=== PATIENT | male | born 1960 | race Caucasian/White ===

== ENCOUNTER → 2024-02-11 06:20 | Day surgery (SDC) | payer OTHER, SELFPAY | LOC: GI 06:20 | PROVIDERS: ATTENDING PHYSICIAN Internal Medicine Gastroenterology | DX: Z12.11 Encounter for screening for malignant neoplasm of colon (principal); Z86.010 Personal history of colon polyps; K64.8 Other hemorrhoids; K57.30 Diverticulosis of large intestine without perforation or abscess without bleeding; D12.0 Benign neoplasm of cecum; D12.3 Benign neoplasm of transverse colon; D12.4 Benign neoplasm of descending colon | CPT/HCPCS: 45385; 45380; 88305 ==

== ENCOUNTER 2024-10-17 13:59 | Inpatient (IN) | payer OTHER, SELFPAY ==
[2024-10-17 10:52] VITALS: BP 132/94
--- NOTE | 2024-10-17 10:52 | ED.GENMED ---
ED Provider Triage
<Rodríguez Buckner PA-C - Last Filed: 10/18/24 07:08>
-
Patient seen by provider in Triage?: Seen in Triage
64 yo male presents due to rapid AF noted on routine EKG at PCP office. No symptoms. No prior hx. Does not have a events solutions consultant. Denies CP SOB, N/V/D or dizziness.
Tachycardic, regular. EKG reviewed from PCP looks like a flutter. Clinically stable.
Check labs including TSH; repeat EKG. Not a cardioversion candidate.
History of Present Illness
<Rodríguez Buckner PA-C - Last Filed: 10/18/24 07:08>
General
Chief Complaint: Heart Rate Problem
Time Seen by Provider: 10/17/24 11:11
<Yareli Key MD - Last Filed: 10/17/24 13:28>
General
Source: patient
History of Present Illness
History of Present Illness:
This patient is a 64-year-old male presents emergency department from his primary care doctor's office. He saw his doctor today for a biannual check, states 'I feel fine', who was noted to be tachycardic, ECG consistent with a flutter. Patient
states that he had no symptoms until he was alerted of this and then he started to notice that his heart rate was elevated. He denies dizziness, dyspnea, back pain, neck pain, headache, abdominal pain, nausea, vomiting, fever, chills. When asked
about chest pain he says he occasionally has 'discomfort' lasting 30 seconds or less, coming and going without specific provoking or relieving factors' for the last 2 days. No associated diaphoresis. Patient denies leg swelling, history of
clotting disorder in him or family members, recent immobilization, recent trauma, recent surgery, smoking history, or other PE risk factors.
Past History
<Rodríguez Buckner PA-C - Last Filed: 10/18/24 07:08>
Past History
ED Past Medical History: None
Social History
Tobacco: Non-smoker
Personal:
Living: with family
Employment: Employed
<Yareli Key MD - Last Filed: 10/17/24 13:28>
Past History
ED Past Medical History: HTN
ED Past Surgical History: Orthopedic
Social History
Alcohol: Occasional
Drug: None
Phy Exam
<Yareli Key MD - Last Filed: 10/17/24 13:28>
Physical Exam
Physical Exam:
GENERAL: Alert , in no apparent distress
EYE: pupils equal and reactive
NECK: Supple, no significant adenopathy.
ENT: o/p clr, mmm.
CARDIAC: Regular rate and rhythm, tachycardic.
LUNGS: Clear breath sounds bilaterally, no acute respiratory distress, no wheezes/rales/rhonchi
ABDOMEN: Soft, without focal tenderness, no r/g, no cvat
NEUROLOGICAL: Alert and oriented, no focal neuro deficits
SKIN: Warm and dry, skin intact.
MUSCULOSKELETAL: No edema, well perfused.
PSYCH: Normal and appropriate interaction.
Course
<Rodríguez Buckner PA-C - Last Filed: 10/18/24 07:08>
Orders/Labs/Results
Orders:
Orders
10/17/24 10:54
Electrocardiogram (*1) Urgent
Reason for Study: Tachycardia
EKG- Treatment ONCE
10/17/24 11:26
Complete Blood Count/No Diff Urgent
Comprehensive Metabolic Panel Urgent
D-Dimer Urgent
TSH Reflex To Free T4 Urgent
Troponin I Urgent
10/17/24 13:23
Diltiazem 125 mg/125 ml Nss [Cardizem] 125 mg in 125 ml IV NOW
Initial dose in mg/hr, then titrate:: 5
Titrate to keep:: Heart rate 80-100 bpm
Titrate by mg/hr:: 5 mg/hr
Frequency of titrations (minutes):: 15
Maximum dose in mg/hr:: 15
Diltiazem HCl [Cardizem] 20 mg IV NOW STA
10/17/24 13:24
CARDIOLOGY CONSULT Urgent
Consulting Provider: Buster Bosch
Was physician already notified: Yes
10/17/24 13:38
Admit/Transfer Patient As Directed
Co-Sign Provider:
Level of Care: Inpatient admission
Assign to:: IVU
Physician / Group: shayla reed
Diagnosis: atrial flutter
Reason for Hospitalization: atrial flutter
Expected length of stay greater than two midnights?: Yes
ELOS- Estimated Length of Stay in days: 3
I certify the patient meets the requirements for IP care: Yes
Code Status As Directed
Resuscitation Status: Full Code
PRN Pain Medication Management As Directed
May give lesser potent ordered pain med per pt: Yes
preference::
Protocol:: Medication orders for pain may be administered in a
manner that supports deferring to patient preference
when the pt is:
- Requesting an ordered lesser potent pain medication.
Least to most potent pain medications are defined
as: acetaminophen < NSAID < tramadol < opioids
(morphine, oxycodone, hydromorphone).
- Requesting a lesser dose of the same medication IF
ORDERED.
- Requesting a less intrusive route of administration
if both routes are prescribed by the provider (PO <
IV).
10/17/24 15:11
Acetaminophen [Tylenol] 650 mg PO Q4HPRN PRN
Bisacodyl [Dulcolax] 10 mg RECTAL [id number] PRN
Diltiazem 125 mg/125 ml Nss [Cardizem] 125 mg in 125 ml IV PER PROTOCOL
Currently infusing. Continue current dose and titrate:: Yes
Titrate to keep:: Heart rate 80-100 bpm
Titrate by mg/hr:: 5 mg/hr
Frequency of titrations (minutes):: 15
Maximum dose in mg/hr:: 15
Docusate W/Senna [Senokot-S] 1 tablet PO BIDPRN PRN
Polyethylene Glycol Powder [Miralax] 17 grams PO DAILYPRN PRN
10/17/24 15:11
Activity As Directed
Activity Level: As Tolerated
Vital Signs As Directed
Frequency: Per unit guidelines
DX Deep Vein Thrombosis Video Routine
10/17/24 18:00
Enoxaparin Sodium [Lovenox] 40 mg SC QPM
10/18/24 08:00
Losartan [Cozaar] 100 mg PO DAILY
Abnormal Lab Results
10/17/24
11:26
RDW 14.6 H %
(11.5-14.5)
MPV 10.7 H fL
(7.4-10.4)
BUN 27 H mg/dl
(9-20)
Glucose 101 H mg/dl
(70-99)
10/17/24 11:26
10/17/24 11:26
Vital Signs
Initial and Last Documented VS:
Initial Vital Signs
Pulse Resp BP Pulse Ox
137 18 132/94 97
10/17/24 10:52 10/17/24 10:52 10/17/24 10:52 10/17/24 10:52
Last Documented Vital Signs
Temp Pulse Resp BP Pulse Ox
98.2 F 106 20 114/86 96
10/17/24 10:54 10/17/24 13:45 10/17/24 13:45 10/17/24 13:41 10/17/24 13:45
<Yareli Key MD - Last Filed: 10/17/24 13:28>
Orders/Labs/Results
Orders:
Orders
10/17/24 10:54
Electrocardiogram (*1) Urgent
Reason for Study: Tachycardia
EKG- Treatment ONCE
10/17/24 11:26
Complete Blood Count/No Diff Urgent
Comprehensive Metabolic Panel Urgent
D-Dimer Urgent
TSH Reflex To Free T4 Urgent
Troponin I Urgent
10/17/24 13:23
Diltiazem 125 mg/125 ml Nss [Cardizem] 125 mg in 125 ml IV NOW
Initial dose in mg/hr, then titrate:: 5
Titrate to keep:: Heart rate 80-100 bpm
Titrate by mg/hr:: 5 mg/hr
Frequency of titrations (minutes):: 15
Maximum dose in mg/hr:: 15
Diltiazem HCl [Cardizem] 20 mg IV NOW STA
10/17/24 13:24
CARDIOLOGY CONSULT Urgent
Consulting Provider: Buster Bosch
Was physician already notified: Yes
10/17/24 13:38
Admit/Transfer Patient As Directed
Co-Sign Provider:
Level of Care: Inpatient admission
Assign to:: IVU
Physician / Group: shayla reed
Diagnosis: atrial flutter
Reason for Hospitalization: atrial flutter
Expected length of stay greater than two midnights?: Yes
ELOS- Estimated Length of Stay in days: 3
I certify the patient meets the requirements for IP care: Yes
Code Status As Directed
Resuscitation Status: Full Code
PRN Pain Medication Management As Directed
May give lesser potent ordered pain med per pt: Yes
preference::
Protocol:: Medication orders for pain may be administered in a
manner that supports deferring to patient preference
when the pt is:
- Requesting an ordered lesser potent pain medication.
Least to most potent pain medications are defined
as: acetaminophen < NSAID < tramadol < opioids
(morphine, oxycodone, hydromorphone).
- Requesting a lesser dose of the same medication IF
ORDERED.
- Requesting a less intrusive route of administration
if both routes are prescribed by the provider (PO <
IV).
10/17/24 15:11
Acetaminophen [Tylenol] 650 mg PO Q4HPRN PRN
Bisacodyl [Dulcolax] 10 mg RECTAL [id number] PRN
Diltiazem 125 mg/125 ml Nss [Cardizem] 125 mg in 125 ml IV PER PROTOCOL
Currently infusing. Continue current dose and titrate:: Yes
Titrate to keep:: Heart rate 80-100 bpm
Titrate by mg/hr:: 5 mg/hr
Frequency of titrations (minutes):: 15
Maximum dose in mg/hr:: 15
Docusate W/Senna [Senokot-S] 1 tablet PO BIDPRN PRN
Polyethylene Glycol Powder [Miralax] 17 grams PO DAILYPRN PRN
10/17/24 15:11
Activity As Directed
Activity Level: As Tolerated
Vital Signs As Directed
Frequency: Per unit guidelines
DX Deep Vein Thrombosis Video Routine
10/17/24 18:00
Enoxaparin Sodium [Lovenox] 40 mg SC QPM
10/18/24 08:00
Losartan [Cozaar] 100 mg PO DAILY
Abnormal Lab Results
10/17/24
11:26
RDW 14.6 H %
(11.5-14.5)
MPV 10.7 H fL
(7.4-10.4)
BUN 27 H mg/dl
(9-20)
Glucose 101 H mg/dl
(70-99)
10/17/24 11:26
10/17/24 11:26
Vital Signs
Initial and Last Documented VS:
Initial Vital Signs
Pulse Resp BP Pulse Ox
137 18 132/94 97
10/17/24 10:52 10/17/24 10:52 10/17/24 10:52 10/17/24 10:52
Last Documented Vital Signs
Temp Pulse Resp BP Pulse Ox
98.2 F 106 20 114/86 96
10/17/24 10:54 10/17/24 13:45 10/17/24 13:45 10/17/24 13:41 10/17/24 13:45
<Rodríguez Buckner PA-C - Last Filed: 10/18/24 07:08>
*Critical Care Note
Total Time (30-74mins, 75-104mins- exclusive of procedures): Not Applicable
<Yareli Key MD - Last Filed: 10/17/24 13:28>
Update Note
Update Note:
Patient presents to the Emergency Department with __tachycardia
Number and Complexity of Problems Addressed at the Encounter
� Chronic conditions affecting care:
� Acute Exacerbation and/or Progression of Chronic Illness:
� Differential Diagnosis includes: But not limited to SVT, A-fib, a flutter, sinus tach, PE, hyperthyroidism, etc. etc.
Amount and/or Complexity of Data to be Reviewed and Analyzed
� I performed an independent evaluation of and my interpretation is:
EKG: A flutter, tachycardia, no acute ischemia
CT:
Xrays:
Laboratory Studies: Generally unremarkable
Other:
� Review of other/old records reveals:
� Clinical information was obtained by an independent historian: Ex- who is at bedside, reports patient 5 cups of coffee per day.
� Prescriptions/Medications Considered but not given:
� Further testing considered but not performed:
Risk of Complications and/or Morbidity or Mortality of Patient Management
� Social determinants of health affecting care:
� Discussion with other providers (PCP, Hospitalists, Consultants, etc):
� Escalation of care including admission/observation vs risk of discharge considered: 1:20 PM Case discussed with cardiology, Dr. Cid, recommends Cardizem drip and admission to hospitalist. Case discussed with hospitalist via
[place] text. Cardizem bolus and drip started, patient and family updated questions answered. Patient is asymptomatic at this
ED Attending Note
<Rodríguez Buckner PA-C - Last Filed: 10/18/24 07:08>
-
Portions of this chart may have been created with voice recognition software.� Occasional wrong word or��sound alike� substitutions may have occurred due to the inherent limitations of voice recognition software.
Discharge Plan
Departure
Patient Disposition: Admit
Date of Disposition: 10/17/24
Time of Disposition: 13:25
Admit to: Telemetry
Presentation/result/management discussed w/ accepting MD/DO: Hospitalist
Discharge Problem:
Atrial flutter
Interventions
Interventions:
*Risk Screen - Suicide Last Done: 10/17/24 12:06
*General Assessment Last Done: 10/17/24 12:06
*Neglect/Abuse Screening Last Done: 10/17/24 12:06
ED- Fall Risk Assessment Last Done: 10/17/24 12:06
*ED COVID-19 Vaccine History Last Done: 10/17/24 12:06
*Nursing Disposition Last Done: 10/17/24 15:18
ED- Cardiac Assessment Last Done: 10/17/24 12:06
ED- Pulmonary Assessment Last Done: 10/17/24 12:06
Discharge Date and Time
Discharge Date/Time: 10/17/24 15:18
[2024-10-17 11:08] VITALS: BP 128/97
[2024-10-17 11:43] LABS: Hematocrit 44.7 % (39.0-52.0); Hemoglobin 15.1 g/dL (13.0-18.0); Mean Corp Hgb Conc. 33.8 g/dL (33.0-37.0); Mean Corpuscular Hgb 30.4 pg (27.0-31.0); Mean Corpuscular Volume 89.9 fL (80.0-94.0); Mean Platelet Volume 10.7 fL (7.4-10.4); Platelet Count 202 10^3/uL (130-400); Red Blood Cell Count 4.97 10^6/uL (4.70-6.10); Red Cell Dist. Width 14.6 % (11.5-14.5); White Blood Cell Count 7.1 10^3/uL (4.8-10.8)
[2024-10-17 11:54] LABS: D-Dimer 0.32 ug/mlFEU (0.00-0.50)
[2024-10-17 12:00] LABS: ALT (SGPT) 27 U/L (0-50); AST (SGOT) 26 U/L (17-59); Albumin 4.3 g/dl (3.5-5.0); Alkaline Phosphatase 74 U/L (38-126); Blood Urea Nitrogen 27 mg/dl (9-20); Calcium 9.5 mg/dl (8.4-10.2); Carbon Dioxide 26 mmol/L (22-30); Chloride 102 mmol/L (98-107); Glucose 101 mg/dl (70-99); Potassium 4.6 mmol/L (3.5-5.1); Sodium 137 mmol/L (135-145); Total Bilirubin 0.7 mg/dl (0.2-1.3); Total Protein 6.7 g/dl (6.3-8.2); eGFR > 60.00
[2024-10-17 12:11] LABS: Troponin I < 0.012 ng/ml
[2024-10-17 12:59] LABS: TSH Reflex To Free T4 2.14 uIU/ml (0.47-4.68)
[2024-10-17 13:06] VITALS: BP 135/98
--- NOTE | 2024-10-17 13:24 | CON.CAR ---
Addendum entered and electronically signed by NAE Auguste 10/17/24 16:20:
Correction to below consult year should be 2024
Addendum entered and electronically signed by Buster Bosch MD 10/17/24 15:32:
Patient seen and examined in collaboration with [employer]; agree with below
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
-The patient appears to be primarily asymptomatic; unknown duration of atrial flutter.
-Will try to arrange GI/cardioversion today; if procedure goes well without any complications, the patient can likely be discharged to home today with outpatient Cardiology follow-up.
-Will start Eliquis 5 mg twice daily; first dose now.
-Currently on a Cardizem drip; will change agent to an oral rate-controlling medication after cardioversion.
-Case discussed with primary Hospitalist who has been updated on the plan of care.
Original Note:
Consultation
Consultation Request
Date/Time Consultation Requested: 10/17/2023 13:20
Date/Time Consultation Performed: 10/17/2023 13:30
Requesting Provider: Dr. Yareli Key
Performing Provider: NAE Hardin for Dr. Bosch
Reason for Consultation: Atrial flutter
Medical History
-
Chief Complaint: Elevated heart rate
History of Present Illness:
Josué Gallego is a 64 year old male with HTN and HLD who presented from his PCP office with elevated heart rate. He was found to be in atrial flutter, 2:1. He was given a diltiazem bolus and started on a drip. Cardiology has been consulted for
rhythm management. He denies palpitations. The onset of his atrial flutter is unknown. He does endorse fatigue. This has been ongoing for at least 2 weeks. He had a cardiac catheterization in 2007 which did not demonstrate obstructive coronary
artery disease. At the time of this consultation he denies chest pain, shortness of breath, and dizziness.
Past Medical History
Past Medical History: HTN and Hypercholesterolemia
Past Surgical History: Urological
Social History
Tobacco: Non-Smoker
Alcohol: Occasional
Drug: None
Personal:
Living: With Family
Employment: Employed (medical officer psychiatry)
Family History
Family History: Reviewed & Not Pertinent
Allergies / Home Medications
Allergy/AdvReac Type Severity Reaction Status Date / Time
No Known Allergies Allergy Verified 06/28/14 11:30
�Medication �Instructions �Recorded �Confirmed �Type
losartan 100 mg tablet 100 mg PO DAILY 10/17/24 10/17/24 History
Review of Systems
-
History Source: Patient
All other systems: Negative unless noted
Constitutional: Fatigue
EENT: No Symptoms
Respiratory: No Symptoms
Cardiac: No Symptoms
Abdomen/GI: No Symptoms
: No Symptoms
Musculoskeletal: No Symptoms
Skin: No Symptoms
Neurological: No Symptoms
Endocrine: No Symptoms
Hematologic/Lymphatic: No Symptoms
Physical Exam
Vital Signs
Temp Pulse Resp BP Pulse Ox
98.2 F 135 15 128/97 95
10/17/24 10:54 10/17/24 13:00 10/17/24 13:00 10/17/24 11:08 10/17/24 13:00
Lab Results
10/17/24 11:26
10/17/24 11:26
Troponin I < 0.012 ng/ml 10/17/24 11:26
Physical Exam
General: Well Developed, Well Nourished, No Apparent Distress and Comfortable
HEENT: Normocephalic, Anicteric and Moist Mucous Membranes
Respiratory: Clear and Non Labored Respirations
Cardiac: S1/S2 and Regular Rhythm; Negative Peripheral Edema
Breast: Deferred by me
GI: Soft, Non Tender, Non Distended and Normal Bowel Sounds
Rectal: Deferred by Provider
Genito-urinary: No Costovertebral Tender
Musculoskeletal: No Clubbing, No Cyanosis and No Edema
Skin: Warm and Dry
Hematologic/Lymphatic: No Lymphadenopathy
Psych: Calm
Impression / Plan
-
Atrial flutter, 2:1
-Rate 130s, diltiazem bolus and gtt
-Oral Anticoagulation: Eliquis 5mg BID after LVEF is assessed
-[id number]: score at least 2 (HTN, age 65-74)
-Echocardiogram
-GI/DCCV, timing to be determined pending echocardiogram findings
HTN
-Hold Losartan to allow for rate controlling agents
HLD, 09/2023: TC 189, HLD 48, LDL 118, TG 121
Prediabetes
Suspected ZURDO, sleep study as an outpatient
Obesity, he would benefit from weight loss
Data Reviewed
-
EKG: Report Reviewed by me
Medical Tests (Nuc Med, Echo etc): Report Reviewed by me (Cardiac catheterization as above)
Labs: Labs Reviewed by me
Old Records: Reviewed
--- NOTE | 2024-10-17 13:28 | HPS.HSE ---
Addendum entered and electronically signed by Param Gipson MD 10/17/24 15:23:
see update note for addendum
Original Note:
Family Physician
-
Family Physician: Denise Chaves
Chief Complaint
-
a flutter
History of Present Illness
64-year-old male with PMH for HTN presents emergency department from his primary care doctor's office. He saw his doctor today for a biannual check who was noted to be tachycardic, ECG consistent with a flutter. patient complained of mid sternum
sore for past few days. he notices the sore only to touch. denied sob.denies dizziness, dyspnea, back pain, neck pain, headache, abdominal pain, nausea, vomiting, fever, chills.
upon arrival noted in atrial fib. starting Cardizem drip.admitting for further management.
Medical History
Past Medical History
Past Medical History: Reports Other
Additional Past Medical History:
Hypertension
Hyperlipidemia
Rectal polyp
Diverticulosis
Past Surgical History: Reports Other
Additional Past Surgical History:
Vasectomy
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
[place] teeth extraction
Social History
Tobacco: Non-smoker
Alcohol: Occasional
Drug: None
Personal:
Living: With Family
Family History
Family History: Not pertinent
Allergies / Home Medications
Allergies reflects when Allergies were last updated in [facility].
Home Medications with original date entered in [facility]
Allergy/Medication List:
Allergies
Allergy/AdvReac Type Severity Reaction Status Date / Time
No Known Allergies Allergy Verified 06/28/14 11:30
Home Medications
losartan 100 mg tablet 100 mg PO DAILY 10/17/24
Review of Systems
-
Constitutional: Reports No Symptoms
EENT: Reports No Symptoms
Respiratory: Reports No Symptoms
Cardiac: Reports Chest Pain
Abdomen/GI: Reports No Symptoms
: Reports No Symptoms
Musculoskeletal: Reports No Symptoms
Skin: Reports No Symptoms
Neurological: Reports No Symptoms
Endocrine: Reports No Symptoms
Hematologic/Lymphatic: Reports No Symptoms
Psych: Reports No Symptoms
Physical Exam
Vital Signs
Vital Signs
Temp Pulse Resp BP Pulse Ox
98.2 F 135 15 128/97 95
10/17/24 10:54 10/17/24 13:00 10/17/24 13:00 10/17/24 11:08 10/17/24 13:00
Physical Exam
General: Well Developed, Well Nourished and No Apparent Distress
HEENT: NormoCephalic, Moist mucous membranes and Atraumatic
Respiratory: Clear
Cardiac: Irregular Rhythm and Tachycardia; No Murmur or Rub
GI: Soft, Non Tender, Non Distended and Normal Bowel Sounds; No Organomegaly
Rectal: Deferred by Provider
Musculoskeletal: No Clubbing, No Cyanosis and No Edema
Skin: No Rash
Neuro: AO x 3 and Nonfocal/grossly intact
Psych: Calm
Laboratory Results
-
10/17/24 11:26
10/17/24 11:26
Laboratory Results
Total Bilirubin 0.7 mg/dl (0.2-1.3) 10/17/24 11:26
AST 26 U/L (17-59) 10/17/24 11:26
ALT 27 U/L (0-50) 10/17/24 11:26
Alkaline Phosphatase 74 U/L (38-126) 10/17/24 11:26
Troponin I < 0.012 ng/ml 10/17/24 11:26
Data Reviewed
-
Lab Data: Labs Reviewed by me
Impression/Plan
-
# A flutter
-On Cardizem drip
-Cardiology consulted
-EKG with a flutter
-Obtain echo
# Hypertension
-Losartan continued
# DVT prophylaxis
-Lovenox
# CODE STATUS
-Full code
[2024-10-17 13:30] VITALS: BP 124/100
[2024-10-17] MEDS: CARDIZEM 20 MG IV (13:35)
[2024-10-17] MEDS: CARDIZEM 125 IV (13:38)
[2024-10-17 13:41] VITALS: BP 114/86
[2024-10-17] MEDS: ELIQUIS 5 MG PO (15:16)
--- NOTE | 2024-10-17 15:19 | W.PN.UPDATE ---
Update Note
Progress Note Update
I saw and examined the patient.
The [employer]OM[employer] CRANE Chas's note was reviewed and I agree with the note.
Comment: 64 y/o M, hx of HTN, presented from PCP office for tachycardia, EKG showed 2:1 Flutter. Denies all complaints except fatigue. in ER started on Cardizem (bolus then drip). Cards consulted and patient admitted to IVU.
Physical Exam
General: Well Developed, Well Nourished and No Apparent Distress
HEENT: NormoCephalic, Moist mucous membranes and Atraumatic
Respiratory: Clear
Cardiac: Irregular Rhythm and Tachycardia; No Murmur or Rub
GI: Soft, Non Tender, Non Distended and Normal Bowel Sounds; No Organomegaly
Rectal: Deferred by Provider
Musculoskeletal: No Clubbing, No Cyanosis and No Edema
Skin: No Rash
Neuro: AO x 3 and Nonfocal/grossly intact
Psych: Calm
Assessment:
A flutter, 2:1
- continue Cardizem drip; requires intensive monitoring
- Echo
- [id number]: score at least 2 (HTN, age 65-74)
- CBC cards consulted
Essential HTN
- hold ARB
DVT ppx: Lovenox
Code: Full
--- NOTE | 2024-10-17 16:12 | W.DS.TRANS ---
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
-
Discharge Instructions:
Discharge Diagnosis/Procedures Atrial Flutter s/p Cardioversion 10/17/24
Diet Low Cholesterol,2 Gram Sodium
Activity As tolerated
Instructions:
Stand-Alone Forms:
Changes to Home Medications: Yes
Discharge Medications:
DC Medications w/original date entered in [facility]
apixaban 5 mg tablet (Eliquis) 5 mg PO BID #60 tabs 10/17/24
diltiazem HCl 180 mg capsule,extended release 24 hr (Cardizem CD) 180 mg PO DAILY #30 caps 10/17/24
Home Medication Changes
stop Losartan
Pending Results: No
Total time spent discharging patient (in min): 41
--- NOTE | 2024-10-17 16:14 | W.PN.UPDATE ---
Update Note
Progress Note Update
notified by Dr. Bosch, decision to pursue cardioversion; successful today. pt to be discharged on Eliquis and Cardizem. Losartan stopped.
--- NOTE | 2024-10-17 16:34 | W.PN.UPDATE ---
Update Note
Progress Note Update
-Patient underwent successful GI/cardioversion.
-LVEF is normal with no significant valvular disease.
-Can discharge to home today on Eliquis 5 mg twice daily, Cardizem CD 180 mg daily, and losartan 50 mg daily.
-Outpatient follow-up with Cardiology.
--- NOTE | 2024-10-17 16:37 | CM ---
Reviewed chart. Received message from attending physician that Mr. Gallego is going to be discharged from the cardiac lab[facility]. Telephone call to [facility] to see if they have Eliquis 5 mg po bid in stock. [facility] states they have it in
stock. [facility] checked his co-pay and his co-pay is $35.00 a month. He has commercial insurance so he can use the $10.00 a month coupon. Gave him the one month free coupon and the $10.00 coupon to use. The discharge plan is to return home when
medically stable.
== END 2024-10-17 17:01 | disposition home or self-care (01) | DRG 310 ==
LOC: CATH-IN 13:59
PROVIDERS: Physician Assistant; ADMITTING PHYSICIAN Internal Medicine; CONSULT PHYSICIAN Internal Medicine; EMERGENCY PHYSICIAN Emergency Medicine; FAMILY PHYSICIAN Family Medicine
PROC: B24BZZ4 Ultrasonography of Heart with Aorta, Transesophageal (ICD-10-PCS; 2024-10-17)
PROC: 5A2204Z Restoration of Cardiac Rhythm, Single (ICD-10-PCS; 2024-10-17)
DX: I48.92 Unspecified atrial flutter (principal); I10 Essential (primary) hypertension; I77.810 Thoracic aortic ectasia; I07.1 Rheumatic tricuspid insufficiency; E78.00 Pure hypercholesterolemia, unspecified
CPT/HCPCS: 80053; 84443; 84484; 85027; 85379; 92960; 93005; 93312; 93320; 93325; 96365; 99284